=== PATIENT | male | born 1985 | race African-American/Black ===

== ENCOUNTER 2016-12-19 00:56 | Emergency (ER) | payer MEDICAID ==
[~2016-12-19] VITALS: Ht 188 cm; Wt 113.6 kg
[2016-12-19] MEDS ORDERED: BACITRACIN 0.9 GM PACKET OINTMENT TP ONE (02:30)
[2016-12-19] MEDS ORDERED: IBUPROFEN 600 MG TABLET PO ONE (02:30)
[2016-12-19] MEDS ORDERED: HYDROCODONE/ACETAMINOPHEN 5-325 MG TABLET PO ONE (02:30)
[2016-12-19 02:43] VITALS: BP 140/76
== END 2016-12-19 02:45 | disposition home or self-care (01) ==
LOC: EMS 01:00
DX: T22.211A Burn of second degree of right forearm, initial encounter (principal); T65.893A Toxic effect of other specified substances, assault, initial encounter; F11.90 Opioid use, unspecified, uncomplicated; F12.90 Cannabis use, unspecified, uncomplicated; F17.210 Nicotine dependence, cigarettes, uncomplicated; X15.0XXA Contact with hot stove (kitchen), initial encounter; Y93.89 Activity, other specified; Y92.89 Other specified places as the place of occurrence of the external cause; Y99.8 Other external cause status
CPT/HCPCS: 99284; 99406